=== PATIENT | female | born 1990 | race Two or more races ===

== ENCOUNTER 2016-11-13 23:58 | Emergency (ER) | payer OTHER ==
[2016-11-14] MEDS ORDERED: RISPERIDONE 0.25 MG TABLET PO ONE (01:49)
[2016-11-14] MEDS ORDERED: ESCITALOPRAM OXALATE 10 MG TABLET PO ONE (01:49)
--- NOTE | 2016-11-14 01:51 | ER Document Report ---
ED General - General Chief Complaint: Suicidal Ideation Stated Complaint: SUICIDAL IDEATIONS Time Seen by Provider: 11/14/16 01:09 Notes: Patient is a 26-year-old female who presents with increased anxiety, depression or panic attack. Contrary to triage assessment patient states she does not have any suicidal ideations but has not made any specific plan for the last several months. She does have prior history of hospitalization and suicide attempts due to depression and anxiety. States that she recently moved back to the area and is currently off all her medications and is requesting a refill of these medications. Denies any delusions or hallucinations. Nothing improves or worsens her symptoms. She has not reestablished a local psychiatric provider but does have a appointment scheduled for the of next [place] OF THE [place] IN LAST 30 DAYS: No - Related Data Allergies/Adverse Reactions: oxcarbazepine [From Trileptal] Allergy (Verified 12/25/13 18:10) Past Medical History - General Information source: Patient - Social History Smoking Status: Never Smoker Frequency of alcohol use: None Drug Abuse: None Lives with: Spouse/Significant other Family History: Reviewed & Not Pertinent, Other - Migraines Patient has suicidal ideation: Yes Patient has homicidal ideation: No Neurological Medical History: Reports: Hx Migraine Renal/ Medical History: Denies: Hx Peritoneal Dialysis Psychiatric Medical History: Reports: Hx Anxiety, Hx Depression - manic, Hx Post Traumatic Stress Disorder Past Surgical History: Reports: Hx Oral Surgery - Immunizations Hx Diphtheria, Pertussis, Tetanus Vaccination: No Review of Systems - Review of Systems Notes: Constitutional: Negative for fever. HENT: Negative for sore throat. Eyes: Negative for visual changes. Cardiovascular: Negative for chest pain. Respiratory: Negative for shortness of breath. Gastrointestinal: Negative for abdominal pain, vomiting or diarrhea. Genitourinary: Negative for dysuria. Musculoskeletal: Negative for back pain. Skin: Negative for rash. Neurological: Negative for headaches, weakness or numbness. 10 point ROS negative except as marked above and in HPI. Physical Exam - Vital signs Vitals: Temp Pulse Resp BP Pulse Ox 98.9 F 81 18 139/103 H 98 11/14/16 00:02 11/14/16 00:02 11/14/16 00:02 11/14/16 00:02 11/14/16 00:02 Interpretation: Normal Notes: PHYSICAL EXAMINATION: GENERAL: Well-appearing, well-nourished and in no acute distress. HEAD: Atraumatic, normocephalic. EYES: Pupils equal round and reactive to light, extraocular movements intact, sclera anicteric, conjunctiva are normal. ENT: nares patent, oropharynx clear without exudates. Moist mucous membranes. NECK: Normal range of motion, supple without lymphadenopathy LUNGS: Breath sounds clear to auscultation bilaterally and equal. No wheezes rales or rhonchi. HEART: Regular rate and rhythm without murmurs ABDOMEN: Soft, nontender, normoactive bowel sounds. No guarding, no rebound. No masses appreciated. EXTREMITIES: Normal range of motion, no pitting or edema. No cyanosis. NEUROLOGICAL: No focal neurological deficits. Moves all extremities spontaneously and on command. PSYCH: Normal mood, normal affect. SKIN: Warm, Dry, normal turgor, no rashes or lesions noted. Course - Re-evaluation Re-evalutation: 11/14/16 02:49 Patient presents with worsening of her depression and anxiety without any acute safety concerns. She especially denies any suicidal or homicidal ideation. She is clear and coherent thought processes. Her at the bedside agrees that she is safe for discharge home. She denies any acute medical concerns while she is here today. Exam is unremarkable. I will refill her chronic depression and anxiety medications. At this time will discharge with return precautions and follow-up recommendations. Verbal discharge instructions given a the bedside and opportunity for questions given. Medication warnings reviewed. Patient is in agreement with this plan and has verbalized understanding of return precautions and the need for primary care follow-up in the next 24-72 hours. - Vital Signs Vital signs: Temp Pulse Resp BP Pulse Ox 98.9 F 81 18 139/103 H 98 11/14/16 00:02 11/14/16 00:02 11/14/16 00:02 11/14/16 00:02 11/14/16 00:02 Discharge - Discharge Clinical Impression: Anxiety Depression (emotion) Qualifiers: Depression Type: major depressive disorder Major depression recurrence: recurrent Active/Remission status: currently active Major depression episode severity: unspecified Qualified Code(s): F33.9 - Major depressive disorder, recurrent, unspecified Condition: Good Disposition: HOME, SELF-CARE Additional Instructions: Please return if you develop thoughts of wanting to harm yourself, hurt others, take excessive medications, began hearing voices or seeing things, or have any other symptoms that are concerning to you. Prescriptions: Escitalopram Oxalate [Lexapro 10 mg Tablet] 10 mg PO QHS #30 tablet Risperidone [Risperdal 0.25 Mg Tablet] 0.25 mg PO QHS #30 tablet Clonazepam [Klonopin] 0.5 mg PO Q12H PRN #10 tablet PRN Reason:
[2016-11-14 04:04] VITALS: BP 115/65
== END 2016-11-14 02:15 | disposition home or self-care (01) ==
LOC: ER 23:58
DX: F33.9 Major depressive disorder, recurrent, unspecified (principal); F41.9 Anxiety disorder, unspecified; Z91.5 Personal history of self-harm; Z88.8 Allergy status to other drugs, medicaments and biological substances
CPT/HCPCS: 99283; J3490